=== PATIENT | male | born 1995 | race American Indian/Alaskan Native ===

== ENCOUNTER 2020-02-05 05:22 | Emergency (ER) | payer SELFPAY ==
--- NOTE | 2020-02-05 06:32 | XRay Report ---
RIGHT HAND 3 VIEWS INDICATION / CLINICAL INFORMATION: Right hand and index finger pain COMPARISON: None available. FINDINGS: BONES and JOINT(S): No acute fracture or subluxation. No significant arthritis. SOFT TISSUES: No significant abnormality. ADDITIONAL FINDINGS: None. IMPRESSION: 1. No acute findings. Signer Name: Kevin Patricia MD Signed: 02/05/2020 6:28 AM Workstation Name: [employer]
[2020-02-05] MEDS ORDERED: TETANUS,DIPHTHERIA TOXOID ADULT 0.5 ML INJ IM ONE (07:26)
[2020-02-05] MEDS ORDERED: LIDOCAINE (1%) 10 MG/1 ML VIAL 20 ML MDV INFILTRATI ONE (07:27)
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
[2020-02-05] MEDS ORDERED: NEOMY 3.5 MG/BACIT 400 UNITS/POLY B 5000 UNITS/GM OINT PACKET TP ONE (08:10)
[2020-02-05] MEDS ORDERED: IBUPROFEN 800 MG TAB PO ONE (08:16)
[2020-02-05 08:38] VITALS: BP 122/74
== END 2020-02-05 08:36 | disposition home or self-care (01) ==
LOC: ED 05:22
DX: S61.411A Laceration without foreign body of right hand, initial encounter (principal); W45.8XXA Other foreign body or object entering through skin, initial encounter; Y93.89 Activity, other specified; Y92.89 Other specified places as the place of occurrence of the external cause; Y99.8 Other external cause status
CPT/HCPCS: 90471; 90714; A6250